=== PATIENT | male | born 1995 | race Hispanic/Latino ===

== ENCOUNTER 2017-08-20 14:16 | Emergency (ER) | payer BC ==
[2017-08-20 14:22] VITALS: BP 125/73; PULSE 80; RESP 20; TEMP 98.2; O2SAT 99
--- NOTE | 2017-08-20 14:29 | ED PDOC ---
Lower Extremity Pain/Injury Time Seen by Provider: 08/20/17 14:20 Chief Complaint (Nursing): Lower Extremity Problem/Injury Chief Complaint (Provider): Ankle Injury History Per: EMS, Family History/Exam Limitations: no limitations Onset/Duration Of Symptoms: Mins (30) Current Symptoms Are (Timing): Constant Severity: Mild Additional History Per: Patient - Ankle/Foot Description Of Injury: Struck Against Object, Twisted, Laceration Feet: 1 - 3cm verticle and linear laceration; bleeding under control Past Medical History Vital Signs: Last Vital Signs Temp 98.2 F 08/20/17 14:19 Pulse 80 08/20/17 14:19 Resp 20 08/20/17 14:19 BP 125/73 08/20/17 14:19 Pulse Ox 99 08/20/17 14:19 - Allergies Allergies/Adverse Reactions: Allergies Allergy/AdvReac Type Severity Reaction Status Date / Time No Known Allergies Allergy Verified 08/20/17 14:19 Review of Systems Musculoskeletal: Positive for: Foot Pain, Other (ankle pain) Physical Exam - Physical Exam Appears: Positive for: Well, No Acute Distress Skin: Positive for: Normal Color Pulses-Dorsalis Pedis (L): 2+ Pulses-Dorsalis Pedis (R): 2+ Pulses-Post. Tibialis (L): 2+ Pulses-Post. Tibialis (R): 2+ Extremity: Positive for: Normal ROM (normal active and passive ROM with weakened strength to rigth ankle (2/5)), Tenderness (to right ATF ligament). Negative for: Pedal Edema, Calf Tenderness - ECG O2 Sat by Pulse Oximetry: 99 Medical Decision Making Medical Decision Making: most likely ankle sprain with minor laceration R/O fx [place] Ankle Rules - Malleolar zone tenderness? Posterior edge or tip of lateral malleolus: Yes Posterior edge or tip of medial malleolus: No Inability to bear weight both immediately and in the ED: Yes - Midfoot zone tenderness? Base of 5th Metatarsal: No Navicular: No Inability to bear weight both immediately and in the ED: No - XRAY INDICATED Is an ankle x-ray indicated based on findings?: Yes (xr foot and ankle) Disposition - Clinical Impression Clinical Impression: Ankle sprain and strain - Patient ED Disposition Is Patient to be Admitted: No Doctor Will See Patient In The: Office Counseled Patient/Family Regarding: Studies Performed, Diagnosis, Need For Followup - Disposition Disposition: Routine/Home (Pt care will follow up at his [facility] in [facility] ; pt has been counseled for the need to follow up and provide rest ice compression and elelvation for proper and more rapid healing; all pt questions responded to satisfactorily prior todischarge) Disposition Time: 15:04 Condition: GOOD Additional Instructions: tylenol 650mg TID and ibu 600mg QID for pain control crutches and jose guadalupe wrap provided I have reviewed and agree with this treatment plan: Patient signature Date: Doctors signature Date: RN's Signature Date: Instructions: Ankle Sprain, Sports Taping for the Ankle Forms: [facility] ([place]akh) - POA Present On Arrival: Falls Or Trauma
--- NOTE | 2017-08-20 15:35 | RAD ---
PROCEDURE: Right Ankle Radiographs. HISTORY: r/o fx COMPARISON: None FINDINGS: BONES: Normal. No fracture. JOINTS: Normal. No osteoarthritis. Ankle mortise maintained. Talar dome intact SOFT TISSUES: Normal. OTHER FINDINGS: None. IMPRESSION: Normal right ankle radiographs.
--- NOTE | 2017-08-20 15:38 | RAD ---
PROCEDURE: Right Foot Radiographs. HISTORY: r/o fx COMPARISON: None. FINDINGS: BONES: Normal. No fracture. JOINTS: Normal. SOFT TISSUES: Normal. OTHER FINDINGS: None. IMPRESSION: Normal right foot radiographs.
== END 2017-08-20 16:41 | disposition home or self-care (01) ==
LOC: H.ER 14:16
DX: S93.401A Sprain of unspecified ligament of right ankle, initial encounter (principal); X50.9XXA Other and unspecified overexertion or strenuous movements or postures, initial encounter; Y92.89 Other specified places as the place of occurrence of the external cause